=== PATIENT | male | born 1975 | race Caucasian/White ===

== ENCOUNTER 2017-06-25 10:57 | Emergency (ER) | payer SELFPAY ==
[2017-06-25] MEDS ORDERED: Tetan/Diph/Pertus SYR(Tdap)* 0.5 ML SYR(BOOSTRIX) use SYR IM ONE (13:21)
--- NOTE | 2017-06-25 13:35 | UC ---
Laceration HPI - HPI Summary HPI Summary: Patient presents with laceration to his right thumb. He states he cut it on a piece of glass at work. He states he has full sensation, and is able to move the thumb with no limitations. He denies foreign body in the wound. He states bleeding is controlled. He is not sure when he has his last tetanus shot. - History Of Current Complaint Chief Complaint: UCLaceration Stated Complaint: thumb laceration Time Seen by Provider: 06/25/17 13:15 Hx Obtained From: Patient Laceration Location: Finger Mechanism Of Injury: Sharp Trauma Onset/Duration: Sudden Onset Severity: Mild Pain Intensity: 0 Aggravating Factors: Movement Related History: Occupational Injury - Allergies/Home Medications Allergies/Adverse Reactions: Allergies Allergy/AdvReac Type Severity Reaction Status Date / Time No Known Allergies Allergy Verified 06/25/17 11:29 Home Medications: Home Medications NK [No Home Medications Reported] 06/25/17 [History Confirmed 06/25/17] PMH/Surg Hx/FS Hx/Imm Hx Previously Healthy: Yes - Surgical History Surgical History: None - Family History Known Family History: Positive: None - Social History Occupation: Employed Full-time Lives: Alone Alcohol Use: Weekly Substance Use Type: Marijuana Substance Use Comment - Amount & Last Used: daily Smoking Status (MU): Never Smoked Tobacco Review of Systems Constitutional: Negative Skin: Negative, Other - laceration right thumb Eyes: Negative ENT: Negative Respiratory: Negative Cardiovascular: Negative Gastrointestinal: Negative Genitourinary: Negative Motor: Negative Neurovascular: Negative Musculoskeletal: Negative Neurological: Negative Psychological: Negative Is Patient Immunocompromised?: No All Other Systems Reviewed And Are Negative: Yes Physical Exam Triage Information Reviewed: Yes Appearance: Well-Appearing Vital Signs: Initial Vital Signs Temp 99.3 F 06/25/17 11:25 Pulse 62 06/25/17 11:25 Resp 12 06/25/17 11:25 BP 140/90 06/25/17 11:25 Pulse Ox 100 06/25/17 11:25 Vital Signs Reviewed: Yes Eye Exam: Normal ENT Exam: Normal Neck exam: Normal Neck: Positive: 1 Respiratory Exam: Normal Cardiovascular Exam: Normal Abdominal Exam: Normal Musculoskeletal Exam: Normal Neurological Exam: Normal Psychological Exam: Normal Skin Exam: Normal - right thumb 1.5 cm superficial laceration. involving the epithelial tissue and partiallly penetrated the dermal tissue. rom intact in all planes, neuro, without dificits to touch., Other Laceration Course/Dx - Course/Dx Course Of Treatment: Patient presents with 1.5 cm laceration of his right thumb. He is neuro-vasc intact.The wound was irrigated, and glued, and he was placed in a thumb spint for comfort and support. His tetanus was updated today. He was discharged home in stable condition. wound/skin adhesive instructions given. - Differential Dx - Laceration/Wound Differental Diagnoses: Laceration Provider Diagnoses: laceration Discharge - Discharge Plan Condition: Stable Disposition: HOME Patient Education Materials: Skin Adhesive Care (ED), Laceration (DC) Referrals: Robert Tipton MD [Primary Care Provider] - Images Hands: 1 - laceration
[2017-06-25 14:56] VITALS: BP 141/84
== END 2017-06-25 14:10 | disposition home or self-care (01) ==
LOC: UCEAST 10:57
DX: S61.011A Laceration without foreign body of right thumb without damage to nail, initial encounter (principal); W25.XXXA Contact with sharp glass, initial encounter; Y92.9 Unspecified place or not applicable; F12.90 Cannabis use, unspecified, uncomplicated
CPT/HCPCS: 12001; 90715; 99212; G0463